=== PATIENT | female | born 1995 | race Two or more races ===

== ENCOUNTER 2022-02-01 10:06 | Observation (INO) | payer MEDICAID ==
[~2022-02-01] VITALS: Ht 165.1 cm; Wt 96.6 kg
[~2022-02-01 10:06] MED LIST: PRENCAP61 PO
== END 2022-02-01 12:08 | disposition home or self-care (01) ==
LOC: LDRP 10:06 → UNDOADMOB 10:06 → LDRP 10:09 → UNDODISOB 12:08
PROVIDERS: ADMIT Obstetrics & Gynecology; ATTEND Obstetrics & Gynecology
DX: O24.419 Gestational diabetes mellitus in pregnancy, unspecified control (principal); O12.03 Gestational edema, third trimester; Z3A.33 33 weeks gestation of pregnancy
CPT/HCPCS: 59025; 76818; 81002; 82948; 82962; 94760; G0378

== ENCOUNTER 2022-02-08 07:12 | Observation (INO) | payer MEDICAID ==
[~2022-02-08] VITALS: Ht 165.1 cm; Wt 98.4 kg
== END 2022-02-09 11:55 | disposition home or self-care (01) ==
LOC: LDRP 02-09 10:13 → UNDOADMOB 02-09 10:13 → LDRP 02-09 10:42
PROVIDERS: ADMIT Obstetrics & Gynecology; ATTEND Obstetrics & Gynecology
DX: O24.419 Gestational diabetes mellitus in pregnancy, unspecified control (principal); Z3A.34 34 weeks gestation of pregnancy; Z79.899 Other long term (current) drug therapy
CPT/HCPCS: 59025; 76818; 81002; 82948; 82962; G0378

== ENCOUNTER 2022-02-16 08:54 | Observation (INO) | payer MEDICAID | END 2022-02-16 11:35 | disposition home or self-care (01) | LOC: LDRP 10:01 → UNDOADMOB 10:01 → LDRP 10:28 | PROVIDERS: ADMIT Obstetrics & Gynecology; ATTEND Obstetrics & Gynecology | DX: O24.419 Gestational diabetes mellitus in pregnancy, unspecified control (principal); Z3A.35 35 weeks gestation of pregnancy | CPT/HCPCS: 59025; 76818; 81002; 82948; 82962; 94760; G0378 ==

== ENCOUNTER 2022-02-23 14:59 | Observation (INO) | payer MEDICAID | END 2022-02-24 11:35 | disposition home or self-care (01) | LOC: UNDOADMOB 02-24 09:52 → LDRP 02-24 09:52 → UNDODISOB 02-24 11:35 | PROVIDERS: ADMIT Obstetrics & Gynecology; ATTEND Obstetrics & Gynecology | DX: O24.419 Gestational diabetes mellitus in pregnancy, unspecified control (principal); Z3A.36 36 weeks gestation of pregnancy | CPT/HCPCS: 59025; 76818; 81002; 82948; 82962; 94760; G0378 ==

== ENCOUNTER 2022-03-02 07:53 | Observation (INO) | payer MEDICAID ==
[~2022-03-02] VITALS: Ht 167.6 cm; Wt 100.2 kg
== END 2022-03-02 10:55 | disposition home or self-care (01) ==
LOC: LDRP 09:38 → UNDOADMOB 09:38 → LDRP 10:18 → UNDODISOB 10:55
PROVIDERS: ADMIT Obstetrics & Gynecology; ATTEND Obstetrics & Gynecology
DX: O24.419 Gestational diabetes mellitus in pregnancy, unspecified control (principal); Z3A.37 37 weeks gestation of pregnancy
CPT/HCPCS: 59025; 76818; 81002; 82948; 82962; 94760; G0378

== ENCOUNTER 2022-03-09 10:34 | Observation (INO) | payer MEDICAID ==
[~2022-03-09] VITALS: Ht 165.1 cm; Wt 99.8 kg
== END 2022-03-09 14:06 | disposition home or self-care (01) ==
LOC: LDRP 10:34 → UNDOADMOB 10:34 → LDRP 10:35
PROVIDERS: ADMIT Obstetrics & Gynecology; ATTEND Obstetrics & Gynecology
DX: O24.419 Gestational diabetes mellitus in pregnancy, unspecified control (principal); O62.9 Abnormality of forces of labor, unspecified; O42.92 Full-term premature rupture of membranes, unspecified as to length of time between rupture and onset of labor; Z3A.38 38 weeks gestation of pregnancy
CPT/HCPCS: 59025; 76818; 81002; 82962; 84112; 94760; G0378; Q0114

== ENCOUNTER 2022-03-16 08:11 | Observation (INO) | payer MEDICAID | END 2022-03-16 12:58 | disposition home or self-care (01) | LOC: UNDOADMOB 10:38 → LDRP 10:38 → UNDODISOB 12:58 | PROVIDERS: ADMIT Obstetrics & Gynecology; ATTEND Obstetrics & Gynecology | DX: O24.419 Gestational diabetes mellitus in pregnancy, unspecified control (principal); O99.891 Other specified diseases and conditions complicating pregnancy; M54.9 Dorsalgia, unspecified; Z3A.39 39 weeks gestation of pregnancy | CPT/HCPCS: 59025; 76818; 81002; 82948; 82962; 94760; G0378 ==

== ENCOUNTER 2022-03-20 08:52 | Observation (INO) | payer MEDICAID | END 2022-03-20 12:37 | disposition home or self-care (01) | LOC: UNDOADMOB 10:22 → LDRP 10:22 | PROVIDERS: ADMIT Obstetrics & Gynecology Obstetrics; ATTEND Obstetrics & Gynecology Obstetrics | DX: O24.419 Gestational diabetes mellitus in pregnancy, unspecified control (principal); Z3A.40 40 weeks gestation of pregnancy | CPT/HCPCS: 59025; 76818; 81002; 82948; 82962; 94760; G0378 ==

== ENCOUNTER 2022-03-21 21:49 | Inpatient (IN) | payer MEDICAID ==
[~2022-03-21] VITALS: Ht 165.1 cm; Wt 102.1 kg
[2022-03-21] MEDS ORDERED: BUTORPHANOL TARTRATE 2 MG/1 ML VIAL IV PRN ×2 (22:30)
[2022-03-21] MEDS ORDERED: LIDOCAINE 2%HCL (LOCAL ANESTH.) INJ 10ml MDV IJ PRN (22:30)
[2022-03-21] MEDS ORDERED: PROMETHAZINE HCL 25 MG/ML 1ML IV PRN (22:30)
[2022-03-21] MEDS ORDERED: LACT. RINGERS/OXYTOCIN 20UNITS 500 ML IV ONE ×2 (23:00→23:30)
[2022-03-21 23:10] LABS: Basophils # (auto) 0 10 ^3/uL (0-0.2); Basophils % (auto) 0.3 % (0.0-2.0); Eosinophils # (auto) 0 10 ^3/uL (0-0.8); Eosinophils % (auto) 0.4 % (0.0-7.0); Hematocrit 33.6 % (36.0-46.0); Hemoglobin 10.8 g/dL (12.2-16.2); Lymphocytes # (auto) 1.9 10 ^3/uL (0.4-5.4); Lymphocytes % (auto) 18.7 % (10.0-50.0); Mean Corpuscular Hgb Conc. 32.1 g/dL (32.0-36.0); Mean Corpuscular Volume 77.8 fL (80.0-100.0); Monocytes # (auto) 0.5 10 ^3/uL (0-1.3); Monocytes % (auto) 4.7 % (0.0-12.0); Neutrophils # (auto) 7.5 10 ^3/uL (1.6-8.6); Neutrophils % (auto) 75.9 % (37.0-80.0); Nucleated Red Blood Cells % 0.1 %; Red Blood Cells 4.31 10^6/uL (4.0-5.20); Red Cell Distribution Width 15.5 % (11.8-14.3); White Blood Cell 9.9 10^3/uL (4.4-10.8)
[2022-03-21 23:29] LABS: INR 0.9 (0.9-1.15); Partial Thromboplastin Time 27.6 sec (24.6-33.4)
[2022-03-21 23:30] LABS: Albumin 2.4 g/dL (3.4-5.0); Calcium 8.3 mg/dL (8.5-10.1); Potassium 3.5 mmol/L (3.5-5.1)
[2022-03-21 23:30] LABS: Amphetamine Screen, Urine NEGATIVE (NEGATIVE); Barbiturate Scree,Urine NEGATIVE (NEGATIVE); Benzodiazephine Screen, Urine NEGATIVE (NEGATIVE); Cannabinoid Screen, Urine NEGATIVE (NEGATIVE); Opiate Scree,Urine NEGATIVE (NEGATIVE); Phencyclidine Screen, Urine NEGATIVE (NEGATIVE)
[2022-03-21 23:32] LABS: Cocaine Screen, Urine NEGATIVE (NEGATIVE)
[2022-03-21 23:40] LABS: Bilirubin, Total 0.5 mg/dL (0.2-1.0); Total Protein 6.6 g/dL (6.4-8.2)
[2022-03-21] MEDS: miSOPROStol 50 MCG per PRE-CUT 1/2 TAB PO PRN (23:46)
[2022-03-22 03:52] LABS: Urine Bacteria FEW /hpf (None Seen); Urine Blood Negative /uL (Negative); Urine Mucus FEW (None Seen); Urine Specific Gravity 1.018 (1.001-1.035); Urine WBC 3 /hpf (0 - 5)
[2022-03-22] MEDS: miSOPROStol 50 MCG per PRE-CUT 1/2 TAB PO PRN ×2 (04:14→09:20)
[2022-03-22] MEDS: LACTATED RINGER'S 1,000 ML IV SCH ×3 (04:29→19:30)
[2022-03-22] MEDS: DERMOPLAST 60ML BOTTLE TOP PRN ×2 (08:34→23:42)
[2022-03-22] MEDS: WITCH HAZEL-GLYCERIN PAD TOP PRN ×2 (08:35→23:42)
[2022-03-22] MEDS: PHISODERM TOP SOLN 240ML BTL TOP PRN ×2 (08:35→23:42)
[2022-03-22] MEDS ORDERED: ePHEDrine SULFATE 50 MG/ML AMP IV ONE (13:45)
[2022-03-22] MEDS ORDERED: NALOXONE HCL 0.4 MG/ML VIAL IV ONE (13:45)
[2022-03-22] MEDS ORDERED: ROPIVACAINE HCL 200 ML EPI SCH (13:45)
[2022-03-22] MEDS ORDERED: LACTATED RINGER'S 1,000 ML IV ONE (13:45)
[2022-03-22] MEDS ORDERED: fentaNYL CITRATE 100 MCG/2 ML VL IV ONE (13:45)
[2022-03-22] MEDS ORDERED: LACT. RINGERS/OXYTOCIN 20UNITS 1,000 ML IV SCH (15:15)
[2022-03-22] MEDS ORDERED: D5W/LACTATED RINGERS 1,000 ML IV SCH (16:00)
[2022-03-22 23:00] VITALS: BP 136/66
[2022-03-23] MEDS ORDERED: ONDANSETRON ODT 4 MG TAB PO PRN (00:45)
[2022-03-23] MEDS ORDERED: ACETAMINOPHEN 325 MG TAB PO PRN (00:45)
[2022-03-23] MEDS: IBUPROFEN 600 MG TAB PO PRN (00:48)
[2022-03-23 02:56] VITALS: BP 136/88
[2022-03-23 06:47] VITALS: BP 117/73
[2022-03-23 07:06] LABS: RPR Non Reactive (Non Reactive)
[2022-03-23 10:45] VITALS: BP 136/71
[2022-03-23] MEDS ORDERED: ROPIVACAINE HCL 200 ML EPI SCH (13:45)
[2022-03-23 15:05] VITALS: BP 109/74
[2022-03-23 19:30] VITALS: BP 118/76
[2022-03-23] MEDS ORDERED: DOCUSATE SOD 100 MG CAP PO SCH (22:00)
[2022-03-23 23:00] VITALS: BP 117/77
[2022-03-24 03:00] VITALS: BP 111/65
[2022-03-24] MEDS: IBUPROFEN 600 MG TAB PO PRN (04:00)
[2022-03-24 06:40] VITALS: BP 108/70
[2022-03-24] MEDS ORDERED: MEASLES, MUMPS & RUBELLA VAC(MMRII) 0.5ML SC ONE (10:45)
[2022-03-24 11:35] VITALS: BP 112/68
== END 2022-03-24 11:25 | disposition home or self-care (01) | DRG 560 ==
LOC: LDRP 21:49
PROVIDERS: ADMIT Obstetrics & Gynecology; ATTEND Obstetrics & Gynecology
PROC: 10E0XZZ Delivery of Products of Conception, External Approach (ICD-10-PCS; principal; 2022-03-22)
PROC: 0HQ9XZZ Repair Perineum Skin, External Approach (ICD-10-PCS; 2022-03-22)
DX: O48.0 Post-term pregnancy (principal); Z37.0 Single live birth; O24.429 Gestational diabetes mellitus in childbirth, unspecified control; O69.81X0 Labor and delivery complicated by cord around neck, without compression, not applicable or unspecified; Z20.822 Contact with and (suspected) exposure to COVID-19; O70.0 First degree perineal laceration during delivery; O77.0 Labor and delivery complicated by meconium in amniotic fluid; Z3A.40 40 weeks gestation of pregnancy
CPT/HCPCS: 36415; 59025; 59409; 62282; 76815; 80053; 80307; 81001; 81002; 82948; 82962; 85025; 85610; 85730; 86592; 86850; 86900; 86901; 94760; 94762; 96360; 96361; 96365; 96372; G0378; J2001; J2590

== ENCOUNTER → 2025-02-26 | Outpatient (CLI) | payer MEDICAID | END | disposition home or self-care (01) | LOC: LAB 10:22 | DX: O03.9 Complete or unspecified spontaneous abortion without complication (principal) | CPT/HCPCS: 36415; 84702 ==